=== PATIENT | male | born 1945 | race Caucasian/White ===

== ENCOUNTER 2017-12-07 09:30 | Inpatient (IN) | payer MEDICARE, OTHER ==
[~2017-12-07] VITALS: Ht 177.8 cm; Wt 95.4 kg
[2017-12-07] VITALS (15 sets, daily range): BP systolic 114–146; BP diastolic 56–73; PULSE 67–103; RESP 16–20; TEMP 97.4–98.7; O2SAT 96–100
[~2017-12-07 09:30] MED LIST: HYZA50TA2 PO; LISI-357 PO; METF-324 PO; MULT-65 PO; NEXI40CA PO; OXYC1SOL6 PO; TOPR25TA2 PO; TRIL45CA PO
[2017-12-07] MEDS ORDERED: SODIUM CHLOR 0.9% 1000 ML INJ 1,000 ML IV SCH (10:25)
[2017-12-07] MEDS ORDERED: METF500T PO (10:28)
[2017-12-07] MEDS ORDERED: SUCR1TAB PO (10:28)
[2017-12-07] MEDS ORDERED: ESOM1CAP16 PO (10:28)
[2017-12-07] MEDS ORDERED: VITA1000 PO (10:28)
[2017-12-07] MEDS ORDERED: LOSA100T3 PO (10:28)
[2017-12-07] MEDS ORDERED: VITA10002 PO (10:28)
[2017-12-07] MEDS ORDERED: SIMV80TA PO (10:28)
[2017-12-07] MEDS ORDERED: SODIUM CHLORIDE 0.9% FLUSH 10 ML FLUSH IVF PRN (10:30)
[2017-12-07 10:46] LABS: AUTOMATED NEUTROPHIL # 6.1 TH/MM3 (1.8-7.7); BASOPHIL % 0.5 % (0.0-2.0); EOSINOPHIL % 0.3 % (0.0-4.0); HEMATOCRIT 23.5 % (39.0-51.0); HEMOGLOBIN 7.8 GM/DL (13.0-17.0); LYMPH % 16.3 % (9.0-44.0); LYMPHOCYTE # 1.3 TH/MM3 (1.0-4.8); MEAN CELL VOLUME 91.5 FL (80.0-100.0); MEAN CORPUSCULAR HEMOGLOBIN 30.5 PG (27.0-34.0); MEAN CORPUSCULAR HGB CONC 33.3 % (32.0-36.0); MEAN PLATELET VOLUME 9.1 FL (7.0-11.0); MONO % 6.1 % (0.0-8.0); MONOCYTE # 0.5 TH/MM3 (0-0.9); NEUT % 76.8 % (16.0-70.0); PLATELET COUNT 134 TH/MM3 (150-450); RED BLOOD COUNT 2.57 MIL/MM3 (4.50-5.90); RED CELL DISTRIBUTION WIDTH 13.5 % (11.6-17.2); WHITE BLOOD COUNT 7.9 TH/MM3 (4.0-11.0)
[2017-12-07 10:56] LABS: CHLORIDE 105 MEQ/L (98-107); SODIUM (NA) 139 MEQ/L (136-145)
[2017-12-07 10:59] LABS: CALCIUM 8.4 MG/DL (8.5-10.1)
[2017-12-07 11:00] LABS: ALBUMIN 3.5 GM/DL (3.4-5.0); BICARBONATE 23.9 MEQ/L (21.0-32.0); BLOOD UREA NITROGEN 36 MG/DL (7-18); GLUCOSE,RANDOM 232 MG/DL (74-106)
[2017-12-07 11:03] LABS: ALT (GPT) 16 U/L (12-78); AST (GOT) 8 U/L (15-37); CREATININE 0.87 MG/DL (0.60-1.30); GLOMERULAR FILTRATION RATE 86 ML/MIN (>89)
[2017-12-07 11:04] LABS: TOTAL BILIRUBIN ADULT 0.2 MG/DL (0.2-1.0); TOTAL PROTEIN 6.2 GM/DL (6.4-8.2)
[2017-12-07 11:06] LABS: ALKALINE PHOSPHATASE 67 U/L (45-117)
[2017-12-07] MEDS ORDERED: ONDANSETRON HCL 4 MG/2 ML VIAL IV PUSH ONE (11:30)
--- NOTE | 2017-12-07 12:04 | PD ---
HPI Chief Complaint: GI Complaint Time Seen by Provider: 10:03 Travel History International Travel<30 days: No Contact w/Intl Traveler<30days: No Traveled to known affect area: No History of Present Illness HPI 72-year-old male reports black stool for couple days. He reports a history of gastric ulcer. He has no abdominal pain however the notes the patient was weak at home. Associated symptoms include dry heaving and nausea. No fever. He reports similar prior symptoms were ultimately diagnosed as ulcer. He reports compliance with medications including Carafate and esomeprazole. He denies the usage of any anticoagulant. PFSH Past Medical History Hx Anticoagulant Therapy: No Arthritis: Yes Blood Disorders: No Cancer: Yes (ESOPHAGUS) Cardiac Catheterization: Yes Cardiovascular Problems: Yes High Cholesterol: Yes Chemotherapy: No Diabetes: Yes Patient Takes Glucophage: Yes Endocrine: Yes Gastrointestinal Disorders: Yes (HIGH GRADE BARRETTS DYSCRASIA/ ABLATION ESOPH) GERD: Yes Glaucoma: No Genitourinary: No Hepatitis: Yes (B [place] 1979) Hiatal Hernia: Yes Hypertension: Yes Immune Disorder: No Implanted Vascular Access Dvce: Yes Musculoskeletal: Yes Neurologic: No Psychiatric: No Reproductive: No Respiratory: Yes Radiation Therapy: No Sleep Apnea: Yes (CPAP) Thyroid Disease: No Tetanus Vaccination: > 5 Years Influenza Vaccination: Yes Past Surgical History Abdominal Surgery: No Cardiac Surgery: No Coronary Stent: No Ear Surgery: No Endocrine Surgery: No Eye Surgery: No Genitourinary Surgery: No Gynecologic Surgery: No Joint Replacement: Yes (HEMANTH. KNEES) Oral Surgery: Yes (ENDOSCOPY ESOPHAGEAL AABLATIONHALO TX AT [facility], T&A) Pacemaker: No Thoracic Surgery: No Other Surgery: Yes (RIGHT [id number],1997-ORIF RIGHT ARM,LEFT KNEE- ARTHROSCOPY,ORIF LEFT KN) Social History Alcohol Use: No Tobacco Use: No Substance Use: No Allergies-Medications (Allergen,Severity, Reaction): Coded Allergies: celecoxib (Unverified Allergy, Severe, Rash, 04/29/17) clopidogrel (Unverified Allergy, Severe, RASH, ITCHING, 04/29/17) niacin (Unverified Allergy, Severe, RASH, FEVER, ITCHING, 04/29/17) omeprazole (Unverified Allergy, Severe, RASH, 04/29/17) KIDNEY ISSUES AND RASH Reported Meds & Prescriptions Reported Meds & Active Scripts Active Reported Vitamin D-1000 (Cholecalciferol) 1,000 Unit Tab 2,000 Units PO DAILY Vitamin B-12 (Cyanocobalamin) 1,000 Mcg Tab Unknown Dose PO DAILY Esomeprazole DR 40 Mg Capdr 40 Mg PO DAILY Losartan-Hydrochlorothiazide 100-12.5 Mg Tab 1 Tab PO DAILY Simvastatin 80 Mg Tab 80 Mg PO DAILY Sucralfate 1 Gram Tab 1 Gm PO QID on empty stomach Metformin (Metformin HCl) 500 Mg Tab 500 Mg PO BIDPC Review of Systems Except as stated in HPI: all other systems reviewed are Neg Physical Exam Narrative GENERAL: 72-year-old male pleasant well-nourished well-developed no acute distress Vital Signs Date Time Temp Pulse Resp B/P (MAP) Pulse Ox O2 Delivery O2 Flow Rate FiO2 12/07/17 11:29 87 16 115/57 (76) 100 Room Air 12/07/17 10:00 96 Room Air 12/07/17 09:35 98.3 103 16 146/69 (94) 100 RECTAL: There is black guaiac positive stool. Well formed. There is no hemorrhoid or fissure or fistula. SKIN: Warm and dry. HEAD: Atraumatic. Normocephalic. EYES: Pupils equal and round. No scleral icterus. No injection or drainage. ENT: No nasal bleeding or discharge. Mucous membranes pink and moist. NECK: Trachea midline. No JVD. CARDIOVASCULAR: Regular rate and rhythm. RESPIRATORY: No accessory muscle use. Clear to auscultation. Breath sounds equal bilaterally. GASTROINTESTINAL: Abdomen soft, non-tender, nondistended. Hepatic and splenic margins not palpable. MUSCULOSKELETAL: Extremities without clubbing, cyanosis, or edema. No obvious deformities. NEUROLOGICAL: Awake and alert. No obvious cranial nerve deficits. Motor grossly within normal limits. Five out of 5 muscle strength in the arms and legs. Normal speech. PSYCHIATRIC: Appropriate mood and affect; insight and judgment normal. Data Data Last Documented VS Vital Signs Date Time Temp Pulse Resp B/P (MAP) Pulse Ox O2 Delivery O2 Flow Rate FiO2 12/07/17 11:29 87 16 115/57 (76) 100 Room Air 12/07/17 09:35 98.3 Orders Orders Complete Blood Count With Diff (12/07/17 10:25) Comprehensive Metabolic Panel (12/07/17 10:25) Prothrombin Time / Inr (Pt) (12/07/17 10:25) Act Partial Throm Time (Ptt) (12/07/17 10:25) Type And Screen (12/07/17 10:25) Ecg Monitoring (12/07/17 10:25) Iv Access Insert/Monitor (12/07/17 10:25) Oximetry (12/07/17 10:25) Sodium Chlor 0.9% 1000 Ml Inj (Ns 1000 M (12/07/17 10:25) Sodium Chloride 0.9% Flush (Ns Flush) (12/07/17 10:30) Ondansetron Inj (Zofran Inj) (12/07/17 11:30) Pantoprazole Inj (Protonix Inj) (12/07/17 12:15) Red Blood Cells (Rbc) (12/07/17 12:10) Blood Product Administration (12/07/17 12:10) Sodium Chlor 0.9% 250 Ml Inj (Ns 250 Ml (12/07/17 12:15) Place In Observation (12/07/17 ) Vital Signs (Adult) Q4H (12/07/17 12:29) Activity Oob With Assistance (12/07/17 12:29) Diet Heart Healthy (12/07/17 Lunch) Diet Npo (12/08/17 Breakfast) Sodium Chlor 0.45% 1000 Ml Inj (1/2 Ns 1 (12/07/17 12:29) Acetaminophen (Tylenol) (12/07/17 12:30) Ondansetron Inj (Zofran Inj) (12/07/17 12:30) Basic Metabolic Panel (Bmp) (12/08/17 06:00) Complete Blood Count With Diff (12/08/17 06:00) Resp Oxygen Yong C Titrat 1-4 L (12/07/17 ) Vte Prophylaxis Not Indicated (12/07/17 12:29) Scd Bilateral/Knee High KAYLA.BID (12/07/17 12:29) Naloxone Inj (Narcan Inj) (12/07/17 12:30) Docusate Sodium-Senna (Elba-Colace) (12/07/17 21:00) Magnesium Hydroxide Liq (Milk Of Magnesi (12/07/17 12:30) Sennosides (Senokot) (12/07/17 12:30) Bisacodyl Supp (Dulcolax Supp) (12/07/17 12:30) Labs Laboratory Tests Test 12/07/17 10:30 White Blood Count 7.9 TH/MM3 Red Blood Count 2.57 MIL/MM3 Hemoglobin 7.8 GM/DL Hematocrit 23.5 % Mean Corpuscular Volume 91.5 FL Mean Corpuscular Hemoglobin 30.5 PG Mean Corpuscular Hemoglobin Concent 33.3 % Red Cell Distribution Width 13.5 % Platelet Count 134 TH/MM3 Mean Platelet Volume 9.1 FL Neutrophils (%) (Auto) 76.8 % Lymphocytes (%) (Auto) 16.3 % Monocytes (%) (Auto) 6.1 % Eosinophils (%) (Auto) 0.3 % Basophils (%) (Auto) 0.5 % Neutrophils # (Auto) 6.1 TH/MM3 Lymphocytes # (Auto) 1.3 TH/MM3 Monocytes # (Auto) 0.5 TH/MM3 Eosinophils # (Auto) 0.0 TH/MM3 Basophils # (Auto) 0.0 TH/MM3 CBC Comment DIFF FINAL Differential Comment Prothrombin Time 10.0 SEC Prothromb Time International Ratio 1.0 RATIO Activated Partial Thromboplast Time 20.7 SEC Blood Urea Nitrogen 36 MG/DL Creatinine 0.87 MG/DL Random Glucose 232 MG/DL Total Protein 6.2 GM/DL Albumin 3.5 GM/DL Calcium Level 8.4 MG/DL Alkaline Phosphatase 67 U/L Aspartate Amino Transf (AST/SGOT) 8 U/L Alanine Aminotransferase (ALT/SGPT) 16 U/L Total Bilirubin 0.2 MG/DL Sodium Level 139 MEQ/L Potassium Level 4.7 MEQ/L Chloride Level 105 MEQ/L Carbon Dioxide Level 23.9 MEQ/L Anion Gap 10 MEQ/L Estimat Glomerular Filtration Rate 86 ML/MIN MDM Medical Decision Making Medical Screen Exam Complete: Yes Emergency Medical Condition: Yes Medical Record Reviewed: Yes Differential Diagnosis Constipation, Gastritis, Acute Cholecystitis, Biliary Colic, Pancreatitis, ROMO , Hepatitis, Bowel Obstruction, Cystitis, Mesenteric Ischemia, AAA, Appendicitis , Renal Stone/Hydronephrosis, GERD, perforated viscous Narrative Course CBC & BMP Diagram 12/07/17 10:30 Total Protein 6.2 L, Albumin 3.5, Calcium Level 8.4 L, Alkaline Phosphatase 67, Aspartate Amino Transf (AST/SGOT) 8 L, Alanine Aminotransferase (ALT/SGPT) 16, Total Bilirubin 0.2 Patient will be admitted for blood transfusion evaluation by GI. Case discussed with Dr. Woodson for GI who reports plan for endoscopy tomorrow 1U PRBCs ordered Protonix 40mg bolus d/w DEACON Mac for Dr Che[facility] Diagnosis Primary Impression: GI bleed Qualified Codes: K92.2 - Gastrointestinal hemorrhage, unspecified Additional Impression: Anemia Qualified Codes: D64.9 - Anemia, unspecified Admitting Information Admitting Physician Requests: Reed Mckee MD Dec 07, 2017 12:04
[2017-12-07] MEDS ORDERED: PANTOPRAZOLE SODIUM 40 MG VIAL IVP ONE (12:15)
[2017-12-07] MEDS ORDERED: SODIUM CHLOR 0.9% 250 ML INJ 250 ML IV ONE (12:15)
[2017-12-07] MEDS ORDERED: ONDANSETRON HCL 4 MG/2 ML VIAL IVP PRN (12:30)
[2017-12-07] MEDS ORDERED: SENNOSIDES 8.6 MG TAB PO PRN (12:30)
[2017-12-07] MEDS ORDERED: ACETAMINOPHEN 325 MG TAB PO PRN (12:30)
[2017-12-07] MEDS ORDERED: MAGNESIUM HYDROXIDE SUSP 30 ML CUP PO PRN (12:30)
[2017-12-07] MEDS ORDERED: BISACODYL 10 MG SUPP RECTAL PRN (12:30)
[2017-12-07] MEDS ORDERED: NALOXONE HCL 0.4 MG/ML AMP IV PUSH PRN (12:30)
--- NOTE | 2017-12-07 12:31 | HHI.HP ---
[facility] Service [facility] ([place], [place])ists Primary Care Physician Cristina Patel MD Admission Diagnosis GI bleed Diagnoses: (1) Anemia (2) GI bleed Chief Complaint: GI bleed Travel History International Travel<30 Days: No Contact w/Intl Traveler <30 Da: No Traveled to Known Affected Are: No History of Present Illness This is a pleasant 72-year-old male patient with a known medical history of gastric ulcer, high-grade Soto's esophagus, hypertension and diabetes who presented to the ED with complaints of black stool. Patient states that around Friday evening he started to have diarrhea that was black, which continued throughout the weekend. He denies any bright red blood in his stool. He denies any associated symptoms including fever, chills, cough, abdominal pain, nausea or vomiting. He does admit to associated fatigue for the past month, shortness of breath and lightheadedness. is at bedside during the assessment, she states that over the past month he has been feeling tired and overall fatigued. Patient did undergo an EGD last year with Dr. Woodson and supposedly was followed at [facility] for an esophageal ablation inhaler treatment. Last colonoscopy was 2 years ago and reportedly negative. Since that time patient really has had no symptoms in bed at his baseline. Patient does take Carafate and PPI at home. Follows with Dr. Tristan, hematology, for chronic anemia. PCP is Dr. Ardon. Review of Systems Constitutional: DENIES: Diaphoretic episodes, Fatigue, Fever, Chills Eyes: DENIES: Blurred vision, Diplopia Respiratory: DENIES: Cough, Sputum production, Shortness of breath Cardiovascular: DENIES: Chest pain, Palpitations Gastrointestinal: COMPLAINS OF: Black stools, Diarrhea, DENIES: Abdominal pain , Bloody stools, Constipation, Nausea, Vomiting Musculoskeletal: DENIES: Joint pain Psychiatric: DENIES: Anxiety, Confusion Except as stated in HPI: all other systems reviewed are Neg Past Family Social History Past Medical History Arthritis Dyslipidemia Diabetes GERD History of hepatitis B Hypertension Hiatal hernia High-grade Soto's dyscrasia Past Surgical History Right rotator cuff surgery Tonsillectomy Bilateral knee replacement Gastric bypass in 2014 Endoscopy with esophageal ablation with HALO treatment at [place] Reported Medications Active Reported Vitamin D-1000 (Cholecalciferol) 1,000 Unit Tab 2,000 Units PO DAILY Vitamin B-12 (Cyanocobalamin) 1,000 Mcg Tab Unknown Dose PO DAILY Esomeprazole DR 40 Mg Capdr 40 Mg PO DAILY Losartan-Hydrochlorothiazide 100-12.5 Mg Tab 1 Tab PO DAILY Simvastatin 80 Mg Tab 80 Mg PO DAILY Sucralfate 1 Gram Tab 1 Gm PO QID on empty stomach Metformin (Metformin HCl) 500 Mg Tab 500 Mg PO BIDPC Allergies: Coded Allergies: celecoxib (Unverified Allergy, Severe, Rash, 04/29/17) clopidogrel (Unverified Allergy, Severe, RASH, ITCHING, 04/29/17) niacin (Unverified Allergy, Severe, RASH, FEVER, ITCHING, 04/29/17) omeprazole (Unverified Allergy, Severe, RASH, 04/29/17) KIDNEY ISSUES AND RASH Active Ordered Medications Current Medications Medications (Trade) Dose Ordered Sig/Sarah Route Start Time Stop Time Status Last Admin (NS Flush) 2 ml UNSCH PRN IVF 12/07/17 10:30 Sodium Chloride 250 ml @ 15 mls/hr ONCE ONCE IV 12/07/17 12:15 12/08/17 04:54 Sodium Chloride 1,000 ml @ 75 mls/hr [id number] IV 12/07/17 12:29 (Tylenol) 650 mg Q4H PRN PO 12/07/17 12:30 (Zofran Inj) 4 mg Q6H PRN IVP 12/07/17 12:30 (Narcan Inj) 0.4 mg UNSCH PRN IV PUSH 12/07/17 12:30 (Elba-Colace) 1 tab BID PO 12/07/17 21:00 (Milk Of Magnesia Liq) 30 ml Q12H PRN PO 12/07/17 12:30 (Senokot) 17.2 mg Q12H PRN PO 12/07/17 12:30 (Dulcolax Supp) 10 mg DAILY PRN RECTAL 12/07/17 12:30 Family History Paternal medical history significant for cardiovascular disease. Brother had esophageal cancer and at the age of 55. Social History Denies any previous or current tobacco use, denies any alcohol or illicit drug use. Physical Exam Vital Signs Vital Signs Date Time Temp Pulse Resp B/P (MAP) Pulse Ox O2 Delivery O2 Flow Rate FiO2 12/07/17 11:29 87 16 115/57 (76) 100 Room Air 12/07/17 10:00 96 Room Air 12/07/17 09:35 98.3 103 16 146/69 (94) 100 Physical Exam GENERAL: Well-developed, well-nourished elderly male patient in [facility]. SKIN: Warm and dry. No rash. Pale HEAD: Normocephalic. Atraumatic. EYES: Pupils equal and round. No scleral icterus. No injection or drainage. Pale ENT: No nasal bleeding or discharge. Mucous membranes pink and moist. NECK: Supple. Trachea midline. CARDIOVASCULAR: Regular rate and rhythm. S1, S2 noted. No murmur appreciated. RESPIRATORY: No accessory muscle use. Clear to auscultation. Breath sounds equal bilaterally. GASTROINTESTINAL: Abdomen soft, non-tender, nondistended. Normoactive bowel sounds x4. MUSCULOSKELETAL: No obvious deformities. Extremities without clubbing, cyanosis , or edema. NEUROLOGICAL: Awake and alert. No obvious cranial nerve deficits. Motor grossly within normal limits. 5/5 muscle strength in bilateral upper and lower extremities. Normal speech. PSYCHIATRIC: Appropriate mood and affect; insight and judgment normal. Laboratory Laboratory Tests Test 12/07/17 10:30 White Blood Count 7.9 Red Blood Count 2.57 Hemoglobin 7.8 Hematocrit 23.5 Mean Corpuscular Volume 91.5 Mean Corpuscular Hemoglobin 30.5 Mean Corpuscular Hemoglobin Concent 33.3 Red Cell Distribution Width 13.5 Platelet Count 134 Mean Platelet Volume 9.1 Neutrophils (%) (Auto) 76.8 Lymphocytes (%) (Auto) 16.3 Monocytes (%) (Auto) 6.1 Eosinophils (%) (Auto) 0.3 Basophils (%) (Auto) 0.5 Neutrophils # (Auto) 6.1 Lymphocytes # (Auto) 1.3 Monocytes # (Auto) 0.5 Eosinophils # (Auto) 0.0 Basophils # (Auto) 0.0 CBC Comment DIFF FINAL Differential Comment Prothrombin Time 10.0 Prothromb Time International Ratio 1.0 Activated Partial Thromboplast Time 20.7 Blood Urea Nitrogen 36 Creatinine 0.87 Random Glucose 232 Total Protein 6.2 Albumin 3.5 Calcium Level 8.4 Alkaline Phosphatase 67 Aspartate Amino Transf (AST/SGOT) 8 Alanine Aminotransferase (ALT/SGPT) 16 Total Bilirubin 0.2 Sodium Level 139 Potassium Level 4.7 Chloride Level 105 Carbon Dioxide Level 23.9 Anion Gap 10 Estimat Glomerular Filtration Rate 86 Result Diagram: 12/07/17 1030 12/07/17 1030 Septic Shock Reassessment Septic shock perfusion: reassessment completed Caprini VTE Risk Assessment Caprini VTE Risk Assessment: Mod/High Risk (score >= 2) Caprini Risk Assessment Model Point Value = 1 Point Value = 2 Point Value = 3 Point Value = 5 Age 41-60 Minor surgery BMI > 25 kg/m2 Swollen legs Varicose veins or History of unexplained or recurrent spontaneous Oral contraceptives or hormone replacement Sepsis (< 1 month) Serious lung disease, including pneumonia (< 1 month) Abnormal pulmonary function Acute myocardial infarction Congestive heart failure (< 1 month) History of inflammatory bowel disease Medical patient at bed rest Age 61-74 Arthroscopic surgery Major open surgery (> 45 min) Laparoscopic surgery (> 45 min) Malignancy Confined to bed (> 72 hours) Immobilizing plaster cast Central venous access Age >= 75 History of VTE Family history of VTE Factor V Leiden Prothrombin [id number] Lupus anticoagulant Anticardiolipin antibodies Elevated serum homocysteine Heparin-induced thrombocytopenia Other congenital or acquired thrombophilia Stroke (< 1 month) Elective arthroplasty Hip, pelvis, or leg fracture Acute spinal cord injury (< 1 month) Prophylaxis Regimen Total Risk Factor Score Risk Level Prophylaxis Regimen 0-1 Low Early ambulation 2 Moderate Order ONE of the following: *Sequential Compression Device (SCD) *Heparin 5000 units SQ BID 3-4 Higher Order ONE of the following medications: *Heparin 5000 units SQ TID *Enoxaparin/Lovenox 40 mg SQ daily (WT < 150 kg, CrCl > 30 mL/min) *Enoxaparin/Lovenox 30 mg SQ daily (WT < 150 kg, CrCl > 10-29 mL/min) *Enoxaparin/Lovenox 30 mg SQ BID (WT < 150 kg, CrCl > 30 mL/min) AND/OR *Sequential Compression Device (SCD) 5 or more Highest Order ONE of the following medications: *Heparin 5000 units SQ TID (Preferred with Epidurals) *Enoxaparin/Lovenox 40 mg SQ daily (WT < 150 kg, CrCl > 30 mL/min) *Enoxaparin/Lovenox 30 mg SQ daily (WT < 150 kg, CrCl > 10-29 mL/min) *Enoxaparin/Lovenox 30 mg SQ BID (WT < 150 kg, CrCl > 30 mL/min) AND *Sequential Compression Device (SCD) Assessment and Plan Problem List: (1) Anemia ICD Code: D64.9 - Anemia, unspecified Status: Acute (2) GI bleed ICD Code: K92.2 - Gastrointestinal hemorrhage, unspecified Status: Acute Assessment and Plan This is a pleasant 72-year-old male patient with a known medical history of gastric ulcer, high-grade Soto's esophagus, hypertension and diabetes who presented to the ED with complaints of black stool. GI bleed with normocytic normochromic anemia suspect secondary to acute blood loss secondary to possible gastric ulcer History of Soto's esophagus -Patient does state he has been having black stools for the past 2 days. With associated fatigue and lightheadedness for over a month. -Hemoglobin 7.8/hematocrit 23.5. ED physician ordered 1 unit packed red blood cells to be transfused today. Will monitor H&H. -BMP reviewed and essentially unremarkable. Continue to monitor blood pressure , vital signs have been stable. -Placed on Protonix 40 mg twice daily. -Consult placed to gastroenterology, patient follows with Dr. Woodson, who has been updated and plans to perform an endoscopy tomorrow a.m. Will allow patient to eat, n.p.o. after midnight. -Ensure hydration, continue IV fluids. -Zofran available as needed for nausea. -Supplemental O2 as needed, keep saturations above 92% patient comfortable on room air. -Supportive care. Elevated random glucose - Does have a history of type II diabetes, but states this is all been resolved since his gastric bypass and losing 85 pounds. On metformin at home, will hold for now. Patient Accu-Chek before meals at bedtime, sliding scale, cover as needed. Will order hemoglobin A1c, follow. Hypertension, chronic: Continue home medications. Monitor BP trends. Hyperlipidemia, chronic: Continue home statin. DVT prophylaxis: SCDs. Will hold chemical prophylaxis at this time, active bleeding. Problem Qualifiers (1) Anemia: Qualified Codes: D64.9 - Anemia, unspecified (2) GI bleed: Qualified Codes: K92.2 - Gastrointestinal hemorrhage, unspecified Tali Mac Dec 07, 2017 12:31
[2017-12-07] MEDS ORDERED: GLUCAGON 1 MG/ML VIAL OTHER PRN (13:30)
[2017-12-07] MEDS ORDERED: DEXTROSE 50% IN WATER 50 ML VIAL(D50) IV PUSH PRN (13:30)
[2017-12-07] MEDS: SODIUM CHLOR 0.45% 1000 ML INJ 1,000 ML IV SCH (13:36)
[2017-12-07] MEDS ORDERED: PANTOPRAZOLE SODIUM 40 MG VIAL IV PUSH SCH (14:00)
--- NOTE | 2017-12-07 15:03 | MB ---
cc: Shubham Osborne MD DATE: 12/07/2017 ROOM NUMBER: Bed 15 in [facility] REFERRING PHYSICIAN: Dr. Brewer REASON FOR VISIT: For melena. HISTORY OF PRESENT ILLNESS: Osvaldo is a 72-year-old male, well known to the undersigned with a history of Soto esophagus with high-grade dysplasia, who also has undergone bariatric surgery at [facility]. About a year or so ago, he had a nonhealing anastomotic ulcer at the gastrojejunal anastomosis. It had been complicated by a prior bleed. He was referred to [place] for endoscopic oversewing of this ulcer and he states a followup endoscopy was done to that document healing. The patient no longer takes any aspirin or NSAIDs and is not on any antiplatelet drugs or blood thinners. He is on esomeprazole twice a day and Carafate twice a day. He states he was feeling well and played golf this past Friday. Friday night, he ate a large bag of black jelly beans and his stools turned black. He thought at first it was from the jelly beans. He had several black stools yesterday and 2 or 3 again this morning and started feeling lightheaded and weak. He came to the emergency department and his hemoglobin is 7.8. He has no abdominal pain. He has some mild gas pains. Slight nausea that comes and goes, but no vomiting. For the past few months, he has been having some sharp chest pain precipitated by eating, but no dysphagia. He denies any weight loss. PAST MEDICAL HISTORY: Remarkable for Soto esophagus, history of obesity, status post gastric sleeve. That was in 2013. He has a history of diabetes, dyslipidemia, arthritis, GERD, hypertension. PAST SURGICAL HISTORY: In addition to his gastric bypass in 2013, he has had right rotator cuff surgery. He has had endoscopic esophageal ablation with Halo treatment at [facility]. He has had bilateral knee replacements. He has had a tonsillectomy. MEDICATIONS: Include vitamin D, vitamin B12, esomeprazole 40 mg twice a day, losartan with hydrochlorothiazide, simvastatin 80 mg daily, sucralfate 1 gm q.i.d., but I believe he is taking it twice a day, and metformin 500 mg twice a day. ALLERGIES: CELECOXIB, CLOPIDOGREL, NIACIN ,AND OMEPRAZOLE. SOCIAL HISTORY: The patient is . His is at the bedside. Does not use tobacco and no significant alcohol history. REVIEW OF SYSTEMS: Remarkable for the sharp gas pains and black stools. For the past few months, he has been having some occasional sharp pains in the center of his chest when he swallows. He states it only occurs during eating, but there is no dysphagia. He did have an upper endoscopy last year. No other chest pain, no shortness of breath, no coughing. No fever or chills. No urinary tract symptoms. PHYSICAL EXAMINATION: GENERAL: Reveals a well-developed male in no acute distress. VITAL SIGNS: His blood pressure is 114/59, pulse 79 and regular, respirations are 16, nonlabored, temperature is 98.3. HEENT: Sclerae are anicteric. NECK: Supple without masses. LUNGS: Clear to percussion and auscultation. CARDIAC: Heart sound reveals a III/ high-pitched systolic murmur that radiates to the right second intercostal space, consistent with aortic stenosis. ABDOMEN: Rounded, soft with no significant tenderness. Normal to slightly hyperactive bowel sounds. No organomegaly. EXTREMITIES: No cyanosis, clubbing, or edema. SKIN: Warm and dry. NEUROLOGIC: He is alert and oriented with a pleasant affect and no gross motor deficits. IMPRESSION: Melena. Patient with a history of a nonhealing gastric ulcer that underwent endoscopic oversewing about a year ago. He also has a murmur consistent with aortic stenosis, so is at risk for angiodysplasias of the gastrointestinal tract. He is still passing black stools. His PT/INR are normal and his BUN was elevated to 36 with a creatinine of 0.87, consistent with upper GI bleeding. LFTs were normal. PLAN: The patient is going to be admitted and given a transfusion of packed red blood cells. We will monitor his H and H closely. Continue PPI therapy and will arrange for upper endoscopy within the next 24 hours. The patient understands the risks, benefits and alternatives of EGD and informed consent obtained. Thank you for this consult. MD KINZA Miner/SIDDHARTH , 02:38 PM , 03:02 PM SHARON
[2017-12-07] MEDS: INSULIN ASPART SUPPLEMENTAL SCALE SQ SCH ×2 (17:37→21:00)
[2017-12-07] MEDS: SUCRALFATE 1 GM TAB PO SCH ×2 (17:38→21:02)
[2017-12-07 19:58] LABS: HEMATOCRIT 23.5 % (39.0-51.0); HEMOGLOBIN 7.9 GM/DL (13.0-17.0)
[2017-12-07] MEDS: PANTOPRAZOLE SODIUM 40 MG VIAL IV PUSH SCH (21:00)
[2017-12-07] MEDS: DOCUSATE SODIUM 50 MG/SENNA 8.6 MG TAB PO SCH (21:02)
[2017-12-08] VITALS (7 sets, daily range): BP systolic 106–146; BP diastolic 54–66; PULSE 60–69; RESP 20; TEMP 96.7–99; O2SAT 97–99
[2017-12-08] MEDS: SODIUM CHLOR 0.45% 1000 ML INJ 1,000 ML IV SCH ×3 (02:39→20:06)
[2017-12-08 06:51] LABS: AUTOMATED NEUTROPHIL # 4.2 TH/MM3 (1.8-7.7); BASOPHIL % 0.3 % (0.0-2.0); EOSINOPHIL # 0.1 TH/MM3 (0-0.4); EOSINOPHIL % 1.7 % (0.0-4.0); HEMATOCRIT 22.8 % (39.0-51.0); LYMPH % 27.5 % (9.0-44.0); LYMPHOCYTE # 1.8 TH/MM3 (1.0-4.8); MEAN CELL VOLUME 91.5 FL (80.0-100.0); MEAN CORPUSCULAR HEMOGLOBIN 32.2 PG (27.0-34.0); MEAN CORPUSCULAR HGB CONC 35.2 % (32.0-36.0); MEAN PLATELET VOLUME 9.1 FL (7.0-11.0); MONO % 8.1 % (0.0-8.0); MONOCYTE # 0.5 TH/MM3 (0-0.9); NEUT % 62.4 % (16.0-70.0); PLATELET COUNT 106 TH/MM3 (150-450); RED BLOOD COUNT 2.49 MIL/MM3 (4.50-5.90); RED CELL DISTRIBUTION WIDTH 15.9 % (11.6-17.2); WHITE BLOOD COUNT 6.6 TH/MM3 (4.0-11.0)
[2017-12-08 07:13] LABS: BICARBONATE 24.5 MEQ/L (21.0-32.0); CALCIUM 8.2 MG/DL (8.5-10.1); CREATININE 0.75 MG/DL (0.60-1.30)
[2017-12-08] MEDS ORDERED: LACTATED RINGER'S 1000 ML INJ 1,000 ML ONE (07:55)
[2017-12-08] MEDS: INSULIN ASPART SUPPLEMENTAL SCALE SQ SCH ×4 (08:00→21:10)
[2017-12-08] MEDS ORDERED: NON-FORMULARY DRUG (Losartan-Hydrochlorothiazide 1 TAB) PO SCH (09:00)
--- NOTE | 2017-12-08 09:09 | HHI.PR ---
Subjective Remarks Follow-up GI bleed. Patient seen and examined, lying in bed comfortably status post EGD. Patient symptoms have improved. Hemoglobin 8.0 today. We will continue to trend. Awaiting final recommendations from gastroenterology for discharge, supposedly he is speaking with [facility] in regards to treatment plan. BMP today essentially unremarkable. Vital signs are stable. Afebrile. No further black stools. Objective Vitals Vital Signs Date Time Temp Pulse Resp B/P (MAP) Pulse Ox O2 Delivery O2 Flow Rate FiO2 12/08/17 04:00 97.4 69 20 146/66 (92) 98 12/08/17 00:00 96.7 65 20 115/59 (77) 99 12/07/17 23:00 70 12/07/17 20:00 98.2 70 20 131/59 (83) 99 12/07/17 20:00 98 21 12/07/17 19:07 73 12/07/17 18:15 98.1 74 20 145/65 98 12/07/17 17:15 97.4 77 20 115/56 98 12/07/17 16:33 12/07/17 16:15 98.0 70 16 132/60 99 12/07/17 16:00 97.9 71 16 134/62 99 12/07/17 16:00 97.9 71 16 134/62 (86) 99 12/07/17 15:45 98.6 70 16 124/73 99 12/07/17 15:30 98.6 67 16 121/59 99 12/07/17 15:15 98.7 73 16 125/61 100 12/07/17 13:42 79 16 114/59 (77) 100 Room Air 12/07/17 12:47 78 16 142/61 (88) 100 Room Air 12/07/17 11:29 87 16 115/57 (76) 100 Room Air 12/07/17 10:00 96 Room Air 12/07/17 09:35 98.3 103 16 146/69 (94) 100 I/O 12/07/17 12/07/17 12/07/17 12/08/17 12/08/17 12/08/17 07:00 15:00 23:00 07:00 15:00 23:00 Intake Total 1000 ml 645 ml Balance 1000 ml 645 ml IV Total 1000 ml 30 ml Packed Cells 365 ml Blood Product IV Normal Saline Flush 250 ml Result Diagram: 12/08/1751912/08/17519 Objective Remarks GENERAL: Well-developed, well-nourished patient in NAD. SKIN: Warm and dry. No rash. HEAD: Normocephalic. Atraumatic. EYES: Pupils equal and round. No scleral icterus. No injection or drainage. ENT: No nasal bleeding or discharge. Mucous membranes pink and moist. NECK: Supple. Trachea midline. CARDIOVASCULAR: Regular rate and rhythm. S1, S2 noted. No murmur appreciated. RESPIRATORY: No accessory muscle use. Clear to auscultation. Breath sounds equal bilaterally. GASTROINTESTINAL: Abdomen soft, non-tender, nondistended. Normoactive bowel sounds x4. MUSCULOSKELETAL: No obvious deformities. Extremities without clubbing, cyanosis , or edema. NEUROLOGICAL: Awake and alert. No obvious cranial nerve deficits. Motor grossly within normal limits. 5/5 muscle strength in bilateral upper and lower extremities. Normal speech. PSYCHIATRIC: Appropriate mood and affect; insight and judgment normal. A/P Problem List: (1) Anemia ICD Code: D64.9 - Anemia, unspecified Status: Acute (2) GI bleed ICD Code: K92.2 - Gastrointestinal hemorrhage, unspecified Status: Acute Assessment and Plan This is a pleasant 72-year-old male patient with a known medical history of gastric ulcer, high-grade Soto's esophagus, hypertension and diabetes who presented to the ED with complaints of black stool. GI bleed with normocytic normochromic anemia suspect secondary to acute blood loss secondary to possible gastric ulcer History of Soto's esophagus -Patient does state he has been having black stools for the past 2 days. With associated fatigue and lightheadedness for over a month. -Hemoglobin 7.8/hematocrit 23.5. ED physician ordered 1 unit packed red blood cells to be transfused today. Hemoglobin 8.0 hematocrit 22.8. Continue to trend. -BMP reviewed and essentially unremarkable. Continue to monitor blood pressure , vital signs have been stable. -Placed on Protonix 40 mg twice daily. Avoid NSAIDs. Add Carafate. Gastroenterology recommended Nexium 40 mg every morning as outpatient. -Consult placed to gastroenterology, patient follows with Dr. Woodson, who performed an EGD today. Small ulcer at gastrojejunal anastomosis with small slightly raised visible vessel. Awaiting final recommendations for discharge. -Ensure hydration, continue IV fluids. -Zofran available as needed for nausea. -Supplemental O2 as needed, keep saturations above 92%. Patient comfortable on room air. -Supportive care. Elevated random glucose - Does have a history of type II diabetes, but states this is all been resolved since his gastric bypass and losing 85 pounds. On metformin at home, will hold for now. Patient Accu-Chek before meals at bedtime, sliding scale, cover as needed. Will order hemoglobin A1c, still pending. Hypertension, chronic: Continue home medications. Monitor BP trends. Hyperlipidemia, chronic: Continue home statin. DVT prophylaxis: SCDs. Will hold chemical prophylaxis at this time, active bleeding. Discharge Planning Will discharge when gastroenterology provides final recommendations for discharge. Problem Qualifiers (1) Anemia: Qualified Codes: D64.9 - Anemia, unspecified (2) GI bleed: Qualified Codes: K92.2 - Gastrointestinal hemorrhage, unspecified Tali Mac Dec 08, 2017 09:09
--- NOTE | 2017-12-08 09:36 | GIPROC ---
[facility] [address] [place] [address], [address] EGD PROCEDURE REPORT EXAM DATE: 12/08/2017 PATIENT NAME: Sleeve SewerOsvaldo MR #: [id number] BIRTHDATE: 1945 ATTENDING: Shubham Osborne MD ORDER #: [id number] WELDING MACHINE TENDER: Ashley Lo and Syed Howe STATUS: inpatient INDICATIONS: The patient is a 72 yr old male here for an EGD due to melena PROCEDURE PERFORMED: EGD w/ control of bleeding MEDICATIONS: None and Per Anesthesia. TOPICAL ANESTHETIC: none CONSENT: The patient understands the risks and benefits of the procedure and understands that these risks include, but are not limited to: sedation, allergic reaction, infection, perforation and/or bleeding. Alternative means of evaluation and treatment include, among others: physical exam, x-rays, and/or surgical intervention. The patient elects to proceed with this endoscopic procedure. medical equipment was checked for proper function. Hand hygiene and appropriate measures for infection prevention was taken. After the risks, benefits and alternatives of the procedure were thoroughly explained, Informed consent was verified, confirmed and timeout was successfully executed by the treatment team. The patient was anesthetized with topical anesthesia and the Pentax EG-[id number] endoscope was introduced through the mouth and advanced to the proximal jejunum. Retroflexion was not performed The gastroscope was then slowly withdrawn and removed. ESOPHAGUS: The mucosa of the esophagus appeared normal. STOMACH: A gastric bypass was found. Small ulcer at gastrojejunal anastomoses with small slightly raised visible vessel. Cautery was applied to the site(s) for 5 secs. With good treatment effect. JEJUNUM: The exam showed no abnormalities in the jejunum. ADVERSE EVENTS: There were no complications. IMPRESSIONS: 1. The esophagus appeared normal 2. Gastric bypass was found 3. Small ulcer at gastrojejunal anastomoses with small slightly raised visible vessel 4. The exam showed no abnormalities in the jejunum 5. Retroflexion was not performed RECOMMENDATIONS: 1. Carafate 1 gm po qid ac 2. Nexium 40 mg Q AM 3. Avoid NSAIDS PATIENT CONDITION: stable DISPOSITION: Inpatient REPEAT EXAM: NONE Shubham Osborne MD eSigned: Shubham Osborne MD 12/08/2017 9:36 AM cc: PATIENT NAME: Sleeve Sewer, Osvaldo Lazo MR#: [id number]
[2017-12-08] MEDS: ATORVASTATIN 40 MG TAB PO SCH (11:19)
[2017-12-08] MEDS: HYDROCHLOROTHIAZIDE 12.5 MG CAP PO SCH (11:19)
[2017-12-08] MEDS: DOCUSATE SODIUM 50 MG/SENNA 8.6 MG TAB PO SCH ×2 (11:19→21:09)
[2017-12-08] MEDS: LOSARTAN 50 MG TAB PO SCH (11:19)
[2017-12-08] MEDS: SUCRALFATE 1 GM TAB PO SCH ×4 (11:19→21:09)
[2017-12-08] MEDS: PANTOPRAZOLE SODIUM 40 MG VIAL IV PUSH SCH ×2 (11:22→21:09)
[2017-12-08 14:27] LABS: HEMATOCRIT 23.4 % (39.0-51.0); HEMOGLOBIN 7.9 GM/DL (13.0-17.0)
[2017-12-09] VITALS (9 sets, daily range): BP systolic 100–127; BP diastolic 57–70; PULSE 60–65; RESP 16–18; TEMP 97.9–98.2; O2SAT 98–99
[2017-12-09 07:52] LABS: HEMATOCRIT 23.1 % (39.0-51.0); HEMOGLOBIN 7.7 GM/DL (13.0-17.0)
[2017-12-09] MEDS ORDERED: ACETAMINOPHEN 325 MG TAB PO PRN (09:15)
[2017-12-09] MEDS ORDERED: SODIUM CHLOR 0.9% 250 ML INJ 250 ML IV ONE (09:15)
[2017-12-09] MEDS ORDERED: diphenhydrAMINE HCL 25 MG CAP PO PRN (09:15)
[2017-12-09] MEDS: LOSARTAN 50 MG TAB PO SCH (09:31)
[2017-12-09] MEDS: DOCUSATE SODIUM 50 MG/SENNA 8.6 MG TAB PO SCH (09:32)
[2017-12-09] MEDS: HYDROCHLOROTHIAZIDE 12.5 MG CAP PO SCH (09:32)
[2017-12-09] MEDS: ATORVASTATIN 40 MG TAB PO SCH (09:33)
[2017-12-09] MEDS: SUCRALFATE 1 GM TAB PO SCH ×3 (09:33→17:00)
[2017-12-09] MEDS: PANTOPRAZOLE SODIUM 40 MG VIAL IV PUSH SCH (09:34)
--- NOTE | 2017-12-09 10:45 | HHI.GIFU ---
GI Follow-up Note Consult Follow-up Subjective: Patient had a hard BM this am followed by black stool but had not had a BM since day of admission. No abd pain. Hgb 7.7 Objective: PHYSICAL EXAMINATION: Vitals signs stable No fever CHEST: non-labored breathing ABDOMEN: Soft, rounded, nontender EXTREMITIES: No clubbing, cyanosis, or edema. SKIN: warm and dry KETTLE CHIPPER: alert and oriented times three. Available Data (labs, X- Rays, Procedues) : Laboratory Tests Test 12/07/17 10:30 12/07/17 19:43 12/08/17 05:20 12/08/17 14:20 Red Blood Count 2.57 MIL/MM3 (4.50-5.90) 2.49 MIL/MM3 (4.50-5.90) Hemoglobin 7.8 GM/DL (13.0-17.0) 7.9 GM/DL (13.0-17.0) 8.0 GM/DL (13.0-17.0) 7.9 GM/DL (13.0-17.0) Hematocrit 23.5 % (39.0-51.0) 23.5 % (39.0-51.0) 22.8 % (39.0-51.0) 23.4 % (39.0-51.0) Platelet Count 134 TH/MM3 (150-450) 106 TH/MM3 (150-450) Neutrophils (%) (Auto) 76.8 % (16.0-70.0) Activated Partial Thromboplast Time 20.7 SEC (24.3-30.1) Blood Urea Nitrogen 36 MG/DL (7-18) 19 MG/DL (7-18) Random Glucose 232 MG/DL (74-106) 130 MG/DL (74-106) Total Protein 6.2 GM/DL (6.4-8.2) Calcium Level 8.4 MG/DL (8.5-10.1) 8.2 MG/DL (8.5-10.1) Aspartate Amino Transf (AST/SGOT) 8 U/L (15-37) Estimat Glomerular Filtration Rate 86 ML/MIN (>89) Monocytes (%) (Auto) 8.1 % (0.0-8.0) Chloride Level 108 MEQ/L (98-107) Test 12/09/17 06:55 Hemoglobin 7.7 GM/DL (13.0-17.0) Hematocrit 23.1 % (39.0-51.0) ASSESSMENT/PLAN: 1. UGI bleed presumably due to a small residual or recurrent anastomotic ulcer s /p recent fulgaration. Melena this am may be passage of old stool and blood but he could be bleeding again. Family concerned about possible aneurysm. This is unlikely but possible so I agree with obtaining a CTA abd. Will keep NPO in case needs repeat EGD. Repeat H&H ordered. It was a pleasure seeing [employer] Conservationist,Osvaldo Dubon. Thank you for this consult. Entered by: Shubham Sen MD Dec 09, 2017 10:45
[2017-12-09] MEDS ORDERED: IOHEXOL 350 MG/ML 10 ML VIAL (for RAD DIAG) IVCONTRAST ONE (12:03)
[2017-12-09 12:58] LABS: HEMATOCRIT 23.5 % (39.0-51.0); HEMOGLOBIN 7.9 GM/DL (13.0-17.0)
--- NOTE | 2017-12-09 14:36 | RADRPT ---
EXAM DATE/TIME: 12/09/2017 11:38 [facility] COMPARISON: No previous studies available for comparison. INDICATIONS : Evaluate for bleed or aneurysm. Low hemoglobin count. IV CONTRAST: 95 cc Omnipaque 350 (iohexol) IV ORAL CONTRAST: No oral contrast ingested. RADIATION DOSE: 27.15 CTDIvol (mGy) ; Patient body habitus MEDICAL HISTORY : Hypertension. Hernia, hiatal. Gastroesophageal reflux disease.Diabetes. Barretts Stage 4 SURGICAL HISTORY : Gastric bypass. ENCOUNTER: Initial ACUITY: 1 day PAIN SCALE: 0/10 LOCATION: pelvis abdomen TECHNIQUE: Volumetric scanning was performed using a multi-row detector CT scanner. The data was post processed with a variety of visualization algorithms including full volume maximum intensity projection, multi -planar sliding thin slab reformation, curved planar reformation, and surface rendering techniques. Using automated exposure control and adjustment of the mA and/or kV according to patient size, radiat ion dose was kept as low as reasonably achievable to obtain optimal diagnostic quality images. DICOM format image data is available electronically for review and comparison. FINDINGS: AORTA/INFLOW: Abdominal aorta is normal in caliber and course. Scattered calcified atherosclerotic plaque throughou t the infrarenal aorta and inflow vessels. No aneurysmal change or stenosis. The celiac, SMA, ANUP, an d renal arteries remain patent. OTHER STRUCTURES: Prior gastric bypass. Bilateral nonobstructing renal calculi. The largest stone involves the left low er pole and is 1 cm in greatest dimension. A tiny right adrenal gland nodule measuring 1.5 cm. Hounsf [place]eld units are 33. Small renal cysts bilaterally. Scattered colonic diverticuli without acute inflamm ation. CONCLUSION: 1. No source of hemorrhage observe. 2. Bilateral nonobstructing renal calculi. 3. Prior gastric bypass. Armando Painting Jr., MD on December 09, 2017 at 14:28 Board Certified Radiologist. This report was verified electronically.
--- NOTE | 2017-12-09 16:00 | HHI.DCPOC ---
Discharge Care Plan Diagnosis: (1) GI bleed (2) Anemia Goals to Promote Your Health * To prevent worsening of your condition and complications * To maintain your health at the optimal level Directions to Meet Your Goals Take your medications as prescribed Follow your dietary instruction Follow activity as directed Keep your appointments as scheduled Take your immunizations and boosters as scheduled If your symptoms worsen call your PCP, if no PCP go to Urgent Care Center or Emergency Room Smoking is Dangerous to Your Health. Avoid second hand smoke Call the 24-hour hour crisis hotline for domestic abuse at Patric Marx Dec 09, 2017 16:00
--- NOTE | 2017-12-09 16:08 | HHI.DS ---
Discharge Summary Admission Date Dec 08, 2017 at 18:16 Discharge Date: Dec 09, 2017 Admitting Diagnosis GI bleed (1) Anemia ICD Code: D64.9 - Anemia, unspecified Status: Acute (2) GI bleed ICD Code: K92.2 - Gastrointestinal hemorrhage, unspecified Status: Acute Procedures EGD, small ulcer at gastrojejunal anastomosis with small slightly raised visible vessel status post cauterization Brief History - From Admission This is a pleasant 72-year-old male patient with a known medical history of gastric ulcer, high-grade Soto's esophagus, hypertension and diabetes who presented to the ED with complaints of black stool. Patient states that around Friday evening he started to have diarrhea that was black, which continued throughout the weekend. He denies any bright red blood in his stool. He denies any associated symptoms including fever, chills, cough, abdominal pain, nausea or vomiting. He does admit to associated fatigue for the past month, shortness of breath and lightheadedness. is at bedside during the assessment, she states that over the past month he has been feeling tired and overall fatigued. Patient did undergo an EGD last year with Dr. Woodson and supposedly was followed at [facility] for an esophageal ablation inhaler treatment. Last colonoscopy was 2 years ago and reportedly negative. Since that time patient really has had no symptoms in bed at his baseline. Patient does take Carafate and PPI at home. Follows with Dr. Tristan, hematology, for chronic anemia. PCP is Dr. Ardon. CBC/BMP: 12/09/17 1234 12/08/17 0520 Significant Findings Laboratory Tests Test 12/07/17 10:30 12/07/17 19:43 12/08/17 05:20 12/08/17 14:20 Red Blood Count 2.57 MIL/MM3 (4.50-5.90) 2.49 MIL/MM3 (4.50-5.90) Hemoglobin 7.8 GM/DL (13.0-17.0) 7.9 GM/DL (13.0-17.0) 8.0 GM/DL (13.0-17.0) 7.9 GM/DL (13.0-17.0) Hematocrit 23.5 % (39.0-51.0) 23.5 % (39.0-51.0) 22.8 % (39.0-51.0) 23.4 % (39.0-51.0) Platelet Count 134 TH/MM3 (150-450) 106 TH/MM3 (150-450) Neutrophils (%) (Auto) 76.8 % (16.0-70.0) Activated Partial Thromboplast Time 20.7 SEC (24.3-30.1) Blood Urea Nitrogen 36 MG/DL (7-18) 19 MG/DL (7-18) Random Glucose 232 MG/DL (74-106) 130 MG/DL (74-106) Total Protein 6.2 GM/DL (6.4-8.2) Calcium Level 8.4 MG/DL (8.5-10.1) 8.2 MG/DL (8.5-10.1) Aspartate Amino Transf (AST/SGOT) 8 U/L (15-37) Estimat Glomerular Filtration Rate 86 ML/MIN (>89) Monocytes (%) (Auto) 8.1 % (0.0-8.0) Chloride Level 108 MEQ/L (98-107) Test 12/09/17 06:55 12/09/17 12:34 Hemoglobin 7.7 GM/DL (13.0-17.0) 7.9 GM/DL (13.0-17.0) Hematocrit 23.1 % (39.0-51.0) 23.5 % (39.0-51.0) PE at Discharge GENERAL: Well-developed, well-nourished, in no acute distress. alert and orientated HEENT: Head is normocephalic without any lesions or masses noted. Facial features are symmetric. Eyes: Extraocular muscles are intact. Conjunctivae were clear. NECK: Supple without any masses. Trachea midline no deviation. No JVD, CARDIAC: Regular rhythm, regular rate. S1/S2 are heard. 2/6 ejection murmur, no gallops or rubs. LUNGS: Clear to auscultation bilaterally. No wheeze, rhonchi or rales. No use of accessory muscles on inspiration or expiration. ABDOMEN: Soft, nontender. Nondistended. Bowel sounds heard in all 4 quadrants. No organomegaly or masses. Negative rebound, negative guarding EXTREMITIES: No edema, pulses are equal bilaterally. No cyanosis or clubbing NEUROLOGY: Mood and affect appear appropriate. Cranial nerves II through XII grossly intact. Moving all extremities, speech is clear Hospital Course 72 year-old male with known history of gastric ulcer, high-grade Soto's esophagus, hypertension, diabetes who we did presented to hospital because of black stools. Patient had workup done emergency department and found to have hemoglobin 7.8 with heme positive stool, melena. Patient was admitted the hospital with GI consultation. Patient did undergo transfusion of one unit packed red blood cells. Patient did undergo endoscopy yesterday which did indicate a small ulceration with visible vessel which was cauterized. Patient still having some dark color stools. He did notice some bright red blood noticed on the stool itself. This was discussed with Dr. Osborne, the medical practice manager. He is recommending that we transfuse 1 unit of blood prior to discharge. The family was concerned that they did do some research and find a study of possible intra-abdominal aneurysm eroding into the gastric remnant from bypass surgery causing GI bleed. Patient did undergo CTA of the abdomen which did not indicate any acute abnormality or any source of bleeding. Patient had repeat hemoglobin done prior to transfusion which do not show any worsening. Hemoglobin was 7.9. Patient undergoing transfusion this time. I notified Dr. Osborne that the CTA was unremarkable, patient undergoing transfusion this time, there is no worsening of his hemoglobin prior to transfusion. He indicated that he was okay for patient to be discharged home with outpatient follow-up. Patient clinically stable this time. Will plan discharge accordingly. Pt Condition on Discharge: Stable Discharge Disposition: Discharge Home Discharge Time: > 30 minutes Discharge Instructions DIET: Follow Instructions for: Heart Healthy Diet Activities you can perform: Regular-No Restrictions Follow up Referrals: Gastroenterology - 2 Weeks with Shubham Osborne MD PCP Follow-up - 1 Week Continued Medications: Cholecalciferol (Vitamin D-1000) 1,000 Unit Tab 2000 UNITS PO DAILY for Nutritional Supplement, #1 BOTTLE 0 Refills Cyanocobalamin (Vitamin B-12) 1,000 Mcg Tab Unknown Dose PO DAILY for Nutritional Supplement, #1 BOTTLE [address] (Esomeprazole DR) 40 Mg Capdr 40 MG PO DAILY, #30 CAP 0 Refills Losartan-Hydrochlorothiazide (Losartan-Hydrochlorothiazide) 100-12.5 Mg Tab 1 TAB PO DAILY for Blood Pressure Management, #30 TAB 0 Refills Metformin (Metformin) 500 Mg Tab 500 MG PO BIDPC for Blood Sugar Management, #60 TAB 0 Refills Simvastatin (Simvastatin) 80 Mg Tab 80 MG PO DAILY for Cholesterol Management, #30 TAB 0 Refills Sucralfate (Sucralfate) 1 Gram Tab 1 GM PO QID for Duodenal ulcer, #120 TAB 0 Refills on empty stomach Patric Marx Dec 09, 2017 16:08
[2017-12-10 18:48] LABS: HEMOGLOBIN A1C 6.3 % (4.3-6.0)
== END 2017-12-09 18:45 | disposition home or self-care (01) | DRG 348 ==
LOC: PHED 09:30 → PHEDA 12:44 → PH3A 16:00 → OBSVTOIN 12-08 18:16
PROVIDERS: ADMIT Hospitalist; ATTEND Hospitalist
PROC: 30233N1 Transfusion of Nonautologous Red Blood Cells into Peripheral Vein, Percutaneous Approach (ICD-10-PCS; 2017-12-07)
PROC: 0W3P7ZZ Control Bleeding in Gastrointestinal Tract, Via Natural or Artificial Opening (ICD-10-PCS; principal; 2017-12-08 09:14)
DX: K28.4 Chronic or unspecified gastrojejunal ulcer with hemorrhage (principal); D62 Acute posthemorrhagic anemia; K92.1 Melena; E11.9 Type 2 diabetes mellitus without complications; I10 Essential (primary) hypertension; K22.70 Barrett's esophagus without dysplasia; I35.0 Nonrheumatic aortic (valve) stenosis; E78.5 Hyperlipidemia, unspecified; K21.9 Gastro-esophageal reflux disease without esophagitis; Z96.653 Presence of artificial knee joint, bilateral; M19.90 Unspecified osteoarthritis, unspecified site; Z98.84 Bariatric surgery status; Z87.11 Personal history of peptic ulcer disease; Z79.84 Long term (current) use of oral hypoglycemic drugs
CPT/HCPCS: 36430; 74174; 80048; 80053; 82948; 83036; 85014; 85018; 85025; 85610; 85730; 86850; 86900; 86901; 86920; 86922; 96361; 96374; 96375; C9113; G0378; J1815; J2405; J7030; J7050; J7120; P9016; Q9967